=== PATIENT | male | born 1945 | race Caucasian/White ===

== ENCOUNTER 2016-10-11 17:49 | Emergency (ER) | payer OTHER, BC ==
[~2016-10-11 17:49] MED LIST: GLUCTAB PO; IBUP-1277 PO; MULTTAB58 PO; OMEGCAP2 PO
[2016-10-11 18:01] VITALS: TEMP 36.6; Ht 172.7 cm
[2016-10-11] MEDS ORDERED: HYDROCODONE/ACETAMOPHEN 5/325MG TAB PO STA (18:46)
--- NOTE | 2016-10-11 19:39 | DIAGNOSTIC IMAGING REPORT ---
LEFT KNEE 3 VIEWS HISTORY: Left knee pain s/p "knee gave out"(Mid femur to distal jeronimo) COMPARISON: None. FINDINGS: There is no fracture or dislocation. Vascular calcifications are noted. No significant knee effusion. Chondrocalcinosis. Moderate cartilage space narrowing within the medial and lateral compartment of the knee. Mild cartilage space narrowing and osteophytes at the patellofemoral joint. The bones are osteopenic. No radiopaque foreign bodies. IMPRESSION: No fractures. Mild to moderate degenerative changes within the left knee. Electronically signed by: Mariano Rodas M.D. 10/11/2016 7:38 PM Dictated Date/Time: 10/11/2016 7:36 PM
--- NOTE | 2016-10-11 20:25 | EMERGENCY ROOM VISIT NOTE ---
History First contact with patient: 18:32 Chief Complaint: KNEEPAIN Stated Complaint: KNEE PAIN- CANNOT STAND ALONE History of Present Illness The patient is a 71 year old male who presents to the Emergency Room via private vehicle accompanied by female with complaints of "knee pain, cannot stand alone". Patient states that earlier today around 4 PM he was at home, urinating and when he attempted to zipper his fly he notes that his left knee gave out on him. He states that since then his left knee has been painful, and he cannot bear weight on it. He denies any knee surgeries or previous knee injuries. He denies any numbness or tingling. He rates the knee pain as an 8/ 10 at rest, and increased with standing. Review of Systems A complete 6-point Review of Systems was discussed with the patient, with pertinent positives and negatives listed in the History of Present Illness. All remaining Review of Systems questions can be considered negative unless otherwise specified. Past Medical/Surgical History No pertinent past medical history. Family History No pertinent family history. Social History Smoking Status: Former Smoker Current/Historical Medications Scheduled Glucosamine Hcl-Methylsulfonyl (Glucosamine/Msm), 1 TABLET PO BID Multiple Vitamin (Multivitamin), 1 TABLET PO DAILY [place]-3 Fatty Acids (Fish Oil), 2 CAPSULES PO DAILY Scheduled PRN Hydrocodone/Acetaminophen 5MG/325MG ([place] 5MG/325MG), 1-2 TABLET PO Q6 PRN for Pain Ibuprofen (Advil), 400 MG PO UD PRN for Pain or Fever Allergies Coded Allergies: No Known Allergies (Unverified , 08/24/13) Physical Exam Vital Signs Date Time Temp Pulse Resp B/P Pulse Ox O2 Delivery O2 Flow Rate FiO2 10/11/16 20:50 91 18 168/85 96 Room Air 10/11/16 18:01 36.6 80 18 162/87 96 Room Air Physical Exam VITAL SIGNS - Vital signs and nursing notes were reviewed. Patient is afebrile , hypertensive at 162/87, non-tachycardic and is saturating well on room air at 96%. GENERAL -71-year-old male appearing his stated age who is in no acute distress. Communicates well with provider and answers questions appropriately. SKIN - Without rashes. No evidence of breaks in the integument. HEAD - NC/AT. LUNGS - Chest wall symmetric without accessory muscle use, intercostals retractions, or central cyanosis. Normal vesicular breath sounds CTA B/L. No wheezes, rales, or rhonchi appreciated. CARDIAC - RRR with S1/S2. No murmur, rubs, or gallops appreciated. EXTREMITIES - No clubbing or peripheral cyanosis. No pretibial edema present. There is tenderness to palpation overlying the anterior left knee. There is pain with passive extension of the left knee, no pain with flexion. No evidence of DVT. No palpable cord or calf tenderness. Patient is vascularly intact. +5/5 strength noted in UE/LE bilaterally. Patient is neurologically intact. Medical Decision & Procedures ER Provider Diagnostic Interpretation: LEFT KNEE 3 VIEWS HISTORY: Left knee pain s/p "knee gave out"(Mid femur to distal jeronimo) COMPARISON: None. FINDINGS: There is no fracture or dislocation. Vascular calcifications are noted. No significant knee effusion. Chondrocalcinosis. Moderate cartilage space narrowing within the medial and lateral compartment of the knee. Mild cartilage space narrowing and osteophytes at the patellofemoral joint. The bones are osteopenic. No radiopaque foreign bodies. IMPRESSION: No fractures. Mild to moderate degenerative changes within the left knee. Electronically signed by: Mariano Rodas M.D. 10/11/2016 7:38 PM Dictated Date/Time: 10/11/2016 7:36 PM Medications Administered Medications (Trade) Dose Ordered Sig/Marie Route Start Time Stop Time Status Last Admin Dose Admin Acetaminophen/ Hydrocodone Bitart ([place] 5/325 Tab) 1 tab NOW STAT PO 10/11/16 18:46 10/11/16 18:48 DC 10/11/16 19:07 1 TAB Acetaminophen/ Hydrocodone Bitart ([place] 5/325mg Home Pack) 1 homepack UD STAT PO 10/11/16 20:29 10/11/16 20:30 DC 10/11/16 20:45 1 HOMEPACK Medical Decision Patient was seen and evaluated as above. After obtaining a thorough history and physical examination radiographs was obtained and a left knee secondary to subjective and objective examination findings. Patient did want something for pain, noted that he did not like oxycodone. He wanted something stronger than [id number] meds. He was given [place]. He was reassessed and was not experiencing much relief. He was then reassessed again and noted that he felt like the knee pain was feeling better. He was also evaluated by my attending. Case was discussed with my attending. Patient was fitted with a knee immobilizer and with crutches. I do believe the patient is likely experiencing a ligamentous injury inside the knee. I do not suspect any tendinous or muscle rupture. Patient is a follow-up in the outpatient setting with orthopedics by calling the phone number tomorrow. He was provided with a phone number to call. He was educated upon management of today's findings. He was educated upon the findings of the left knee. He was instructed to follow-up with orthopedics. He had questions answered prior to discharge, had questions answered prior to discharge and was discharged home in good condition with a prescription for [place]. He was also given a home pack. In the evaluation and treatment of this patient, the following differential diagnoses were considered: Patellar Fracture, Tibial Plateau Fracture, Distal Femur Fracture, ACL Injury, PCL Injury, Collateral Ligament Injury, Pes Anserine Bursitis, [place] Fracture. [place] Drug Monitoring Program Search Results: patient reviewed within database, no issues identified Impression Primary Impression: Knee pain Departure Information Dispostion Home / Self-Care Condition GOOD Prescriptions Hydrocodone/Acetaminophen 5MG/325MG ([place] 5MG/325MG) Tab 1-2 TABLET PO Q6 Y for Pain, #15 TAB For Initial Treatment Prov: Misael Barrera PA-C 10/11/16 Referrals No Doctor, Assigned (PCP) Ignacio Keita M.D. Patient Instructions My [facility] Additional Instructions You have been treated in the Emergency Department for Left Knee Pain.You have received pain medicine in the emergency department which impairs your ability to operate a vehicle. It is illegal for you to drive after receiving these medicines. You have been prescribed [place] to be used for pain control. This is a narcotic medication. You cannot drive or consume alcohol while on this medicine. This medicine should only be used for pain that cannot be controlled with over-the- counter pain medicines. For pain control, you can use the following btfw-xxt-rjanbic medicines (if >12 yo): DO NOT TAKE THIS WITH TYLENOL IT ALREADY HAS TYLENOL IN IT!!! - Regular strength (200 mg/tab) Advil (ibuprofen) 1-2 tabs every 4-6 hours as needed. Do not exceed a dose of 3200 mg per day. If this is a recent injury (<24 hrs), ice can be applied to the area of pain for the first 3 days to help decrease pain and inflammation. Ice massages can be performed by freezing water in a paper cup, peeling back the cup to expose the ice and then massaging over the affected area. You have been provided the number for an Orthopaedic Surgeon. You should call this number as soon as possible to establish a follow-up visit from today's Emergency Department visit. (Dr. Keita) Keep the knee brace in place until cleared by Orthopedics. Use the crutches you have been provided to keep ALL weight off of the knee until weight bearing is tolerable. Return to the Emergency Department if your current symptoms worsen despite treatment course outlined above. Problem Qualifiers Primary Impression: Knee pain Laterality: left Chronicity: acute Qualified Codes: M25.562 - Pain in left knee
[2016-10-11] MEDS ORDERED: NORCO 5/325MG HOME PACK PO STA (20:29)
[2016-10-11] MEDS ORDERED: HYDR-5688 PO (20:32)
[2016-10-11 20:50] VITALS: BP 168/85; PULSE 91; O2SAT 96
--- NOTE | 2016-10-13 01:39 | EMERGENCY ROOM VISIT NOTE ---
ED Visit Note First contact with patient: 18:32 I have personally evaluated this patient examined her and reviewed the pertinent labs and data. I have discussed the case with Misael Barrera, the physician economic research assistant and agree with the plan. Please refer to the PA note The patient has left knee pain. He has some arthritis in this knee and it is not red or warm. He has difficult time with extension and has some mild pain that started anteriorly and is now more posteriorly. He has no calf tenderness. he is neurologically neurovascularly intact. He has nothing to suggest section and has no redness or warmth.. X-rays showed degenerative changes. the patient was given an immobilizer and pain medicine as a follow-up with orthopedist.
[2016-12-22] MEDS ORDERED: ZFR/8 PO (13:47)
[2016-12-22] MEDS ORDERED: CLB/200 PO (13:47)
[2016-12-22] MEDS ORDERED: VSC/5 PO (13:47)
== END 2016-10-11 20:51 | disposition home or self-care (01) ==
LOC: C.EDB 17:50 → C.EDD 20:51
DX: M25.562 Pain in left knee (principal)

== ENCOUNTER → 2016-12-29 | Outpatient (CLI) | payer OTHER, BC ==
[~2016-12-29] MED LIST changes: +ACET-1138 PO; +ASPEC81 PO; +CLB/200 PO; -GLUCTAB PO; -IBUP-1277 PO; +LISI-461 PO; -OMEGCAP2 PO; +OXYSR10 PO; +RXC5 PO; +VSC/5 PO; +ZFR/8 PO
[2016-12-29 13:18] LABS: CHOLESTEROL/HDL RATIO 4.4; PROSTATE SPECIFIC ANTIGEN 4.38 ng/ml (0.000-4.000)
--- NOTE | 2017-01-03 11:23 | CODING QUERY MEDICAL NECESSITY ---
CQSUPPORTING DIAGNOSIS NEEDED A supporting diagnosis is required for the test/procedure performed on this patient in order for us to be reimbursed by the patient's insurance. Please provide a supporting diagnosis for the following test/procedure listed below next to the test name along with your signature. *If there is no additional diagnosis for this patient that would support the following test/procedure please document that below next to the test/procedure. Test(s)/Procedure(s) that require a supporting diagnosis: DOS 12/29/16 PROSTATE SPECIFIC (PSA) Provider Signature: Date: Thank you Naina Aranda Health Information Management Once completed, please kindly fax back to [phone] For questions please call [phone]
== END | disposition home or self-care (01) ==
LOC: C.LABPBG 10:59
PROVIDERS: ATTEND Neuromusculoskeletal Medicine & OMM
DX: Z00.00 Encounter for general adult medical examination without abnormal findings (principal); I10 Essential (primary) hypertension; Z12.5 Encounter for screening for malignant neoplasm of prostate

== ENCOUNTER 2017-01-13 05:14 | Inpatient (IN) | payer OTHER, BC ==
[2016-12-22 13:48] VITALS: BMI 25.0
--- NOTE | 2016-12-22 14:25 | PAT Medication Instructions ---
Service Date December 22, 2016. Current Home Medication List Celecoxib (CeleBREX), 200 MG PO BID PRN for Pain Multiple Vitamin (Multivitamin), 1 TABLET PO DAILY Ondansetron (Ondansetron HCl), 1 TAB PO Q6H PRN for Nausea Solifenacin (Vesicare), 5 MG PO QAM Medication Instructions For Your Scheduled Surgery - Check with surgeon for instructions: Celecoxib (CeleBREX), 200 MG PO BID PRN for Pain - Hold the following medications the morning of surgery: Solifenacin (Vesicare), 5 MG PO QAM Multiple Vitamin (Multivitamin), 1 TABLET PO DAILY - Take the following medications the morning of surgery with a sip of water: Ondansetron (Ondansetron HCl), 1 TAB PO Q6H PRN for Nausea - Take the following medications as scheduled the night before surgery: Ondansetron (Ondansetron HCl), 1 TAB PO Q6H PRN for Nausea If you have any questions please call us at [phone] (Caryn Tate PA-C) or [phone] or [phone]
[2016-12-22 15:01] LABS: BASO % 0.3 %; BASO ABS # 0.02 K/uL (0-0.2); COMPLETE YES; EOS % 2.2 %; HEMATOCRIT 47.6 % (42-52); IG% 0.3 %; LYMPH % 24.6 %; LYMPH ABS # 1.69 K/uL (1.2-3.4); MEAN CELL VOLUME 92.8 fL (80-100); MEAN CORPUSCULAR HGB CONC 34.5 g/dl (32-36); NEUT % 63.6 %; PLATELET COUNT 207 K/uL (130-400); RED BLOOD COUNT 5.13 M/uL (4.7-6.1); WHITE BLOOD COUNT 6.86 K/uL (4.8-10.8)
--- NOTE | 2016-12-22 15:01 | DIAGNOSTIC IMAGING REPORT ---
CHEST PREADMISSION(PA/LAT) CLINICAL HISTORY: Preoperative evaluation. COMPARISON STUDY: No previous studies for comparison. FINDINGS: Lung volumes are normal. Lungs are clear. There is no pneumothorax or pleural effusion. Cardiac size is normal. Mediastinal contours are normal. There is no evidence of pulmonary edema. IMPRESSION: No acute cardiopulmonary findings. Electronically signed by: Kevan Church M.D. 12/22/2016 3:00 PM Dictated Date/Time: 12/22/2016 2:59 PM
[2016-12-22 15:11] LABS: CREATININE 0.88 mg/dl (0.60-1.40); POTASSIUM 4.2 mmol/L (3.5-5.1)
[2016-12-22 15:24] LABS: URINE APPEARANCE CLEAR (CLEAR); URINE BILIRUBIN NEG (NEG); URINE COLOR YELLOW; URINE EPITHELIAL CELL AUTO 0-5 /lpf (0-5); URINE NITRITE NEG (NEG); URINE PH 5.5 (4.5-7.5); URINE SPECIFIC GRAVITY 1.019 (1.000-1.030); UROBILINOGEN NEG (NEG)
[2016-12-22 15:25] LABS: PARTIAL THROMBOPLASTIN RATIO 1.1; PROTHROMBIN TIME (PATIENT) 10.3 SECONDS (9.0-12.0)
[2016-12-22 15:29] LABS: MANUAL MICROSCOPIC REQUIRED? NO; REVIEW REQ? NO
[2016-12-23 07:50] LABS: ESTIMATED AVERAGE GLUCOSE 105 mg/dl; HA1C FLAG Normal (Normal)
--- NOTE | 2017-01-09 15:19 | HISTORY & PHYSICAL EXAMINATION ---
DATE OF ADMISSION: 01/13/2017 CHIEF COMPLAINT: Right knee pain. HISTORY OF PRESENT ILLNESS: The patient is a 71-year-old male that is here for followup for right knee pain. He states that the symptoms have been chronic and nontraumatic. He describes the pain as aching, sharp and throbbing at times. He has tried cortisone injections with no relief. He has also tried physical therapy and anti-inflammatories with no relief. He would like to proceed with a right total knee arthroplasty. PAST MEDICAL HISTORY: Significant for arthritis, hearing impairment. PAST SURGICAL HISTORY: Hernia repair. SOCIAL HISTORY: Drinks 1 alcoholic beverage a week. He denies smoking or tobacco use. Denies IV drug use. Lives in a 1-story house. He is currently retired. FAMILY HISTORY: Sister had leukemia and . ALLERGIES: He has no known drug allergies. MEDICATIONS: He is on VESIcare 5 mg 1 tablet daily, [place] 5/325 as needed for pain, finasteride 1 mg 1 tablet daily, Centrum Silver, Osteo Bi-Flex. REVIEW OF SYSTEMS: He denies headaches, fevers, chills, double vision, blurry vision, sore throat, cough, chest pain, nausea, vomiting, diarrhea, numbness, tingling, tired, urinary difficulties, thoughts to harm himself or harm others, depression. He is positive for joint pain and joint stiffness of the right knee. OBJECTIVE: GENERAL APPEARANCE: The patient is a 71-year-old male sitting in no acute distress. He is well dressed, well nourished. He is awake, alert and oriented x3. VITAL SIGNS: He is 5 feet 8 inches tall, weighs 160 pounds, blood pressure is 142/88. HEENT: Extraocular movements are intact. PERRLA. Mucosa was moist. No septal deviation. NECK: Supple, no lymphadenopathy, no JVD, no thyromegaly. HEART: Regular rate and rhythm. No murmurs or gallops. LUNGS: Clear to auscultation. No wheezes or rhonchi. ABDOMEN: Soft, nontender, nondistended. Normal bowel sounds, no hepatosplenomegaly. EXTREMITIES: Paying particular attention to the right lower extremity, he is able to actively extend to 2 degrees of extension, 90 degrees of flexion. He has diffuse tenderness, particularly more over the medial joint line. His ligaments are intact. He has a negative valgus, negative varus stress test, negative anterior and negative posterior, negative Lisa's test, negative Suzie's test. NEUROLOGIC: Cranial nerves II through XII are intact. Pulses were compared bilaterally and were equal. IMAGING: X-rays demonstrate [id number] arthritis with significant varus deformity, subchondral sclerosis, cystic change bilaterally with osteophyte formation off the medial femoral condyle and medial tibial plateau. IMPRESSION: Degenerative joint disease of the right knee. PLAN: The patient is scheduled for a right total knee arthroplasty. The patient has tried cortisone injections, physical therapy, and nonsteroidal anti-inflammatories with no relief. He would like to proceed with a right total knee arthroplasty. Risks and benefits were discussed with the patient and included but not limited to infection, DVT, pain, stiffness, need for revision surgeries, damage to blood vessels, damage to nerves, PE, and anesthesia risks. He understands these risks and wishes to proceed. All questions were answered to his satisfaction. DVT prophylaxis will be aspirin 81 mg twice a day. He would like to go home with home health. DANIEL
[~2017-01-13] VITALS: Ht 172.7 cm; Wt 74.5 kg
[2017-01-13] VITALS (8 sets, daily range): BP systolic 120–162; BP diastolic 66–84; PULSE 83–101; TEMP 36.3–36.7; O2SAT 96–100; Ht 172.7 cm; Wt 74.5 kg
[~2017-01-13 05:14] MED LIST changes: -ACET-1138 PO; -ASPEC81 PO; +AcetaZOLAMIDE 250 MG TAB PO SCH; +BETAXOLOL HCL 0.25% OP SUSP PER DROP CHARGE OPR SCH; +CYCLOPENTOLATE HCL 1% OP SOLN PER DROP CHARGE OPR SCH; +LACTATED RINGER'S 1000ML 500 ML IV SCH; +LIDOCAINE 4% OP SOLN DROP CHARGE OPR SCH; -LISI-461 PO; +MOXIFLOXACIN OPH SOLN PER DROP CHARGE OPR SCH; -OXYSR10 PO; +PHENYLEPHRINE HCL 2.5% OP SOLN PER DROP CHARGE OPR SCH; +PROPARACAINE 0.5% OP SOLN PER DROP CHARGE OPR SCH; -RXC5 PO; +TROPICAMIDE 1% OP SOLN PER DROP CHARGE OPR SCH
[2017-01-13] MEDS ORDERED: LACTATED RINGER'S 1000ML 1,000 ML IV SCH (06:00)
[2017-01-13] MEDS ORDERED: CeleBREX 200 MG CAP PO SCH ×2 (06:00→21:00)
[2017-01-13] MEDS ORDERED: GABAPENTIN 300 MG CAP PO SCH (06:00)
[2017-01-13] MEDS ORDERED: LACTATED RINGER'S 1000ML IV SCH (06:00)
[2017-01-13] MEDS ORDERED: CEFAZOLIN 2000 MG/60 ML D5W 60 ML IV SCH (06:00)
[2017-01-13] MEDS ORDERED: DEXAMETHASONE 4 MG TAB PO SCH (06:00)
[2017-01-13] MEDS ORDERED: ACETAMINOPHEN 500 MG TAB PO SCH (06:00)
[2017-01-13] MEDS ORDERED: LACTATED RINGER'S 1000ML 500 ML IV ONE (06:00)
[2017-01-13] MEDS ORDERED: ROPIVACAINE 5MG/ML 30 ML 150 MG, BUPIVACAINE/EPINEPHR 0.5% MPF 30 ML, KETOROLAC TROMETH... INFIL SCH ×7 (06:00)
[2017-01-13] MEDS ORDERED: METOCLOPRAMIDE HCL 10 MG TAB PO SCH (06:00)
[2017-01-13] MEDS ORDERED: LISI-461 PO (06:16)
[2017-01-13] MEDS ORDERED: BUPIVACAINE 0.25% 30 ML VIAL ONE (06:40)
[2017-01-13] MEDS ORDERED: BUPIVACAINE 0.5 % 5 MG/1 ML PF 10ML VIAL ONE (06:40)
[2017-01-13] MEDS ORDERED: PROPOFOL IV EMULSION 10 MG/ML 20 ML VIAL IV ONE ×3 (06:44→09:34)
[2017-01-13] MEDS ORDERED: MIDAZOLAM HCL 1 MG/ML 2ML VIAL ONE (06:46)
[2017-01-13] MEDS ORDERED: FENTANYL CITRATE INJ 50 MCG/1 ML 2 ML VIAL ONE (06:46)
--- NOTE | 2017-01-13 06:46 | History & Physical Bridge Note ---
H&P Re-Evaluation Bridge Note: I have examined the patient, reviewed the History & Physical and in the interval since the performance of the History & Physical I have noted the following changes of clinical significance: No changes noted
[2017-01-13] MEDS: TRANEXAMIC ACID INJ 1,000 MG in SODIUM CHLORIDE 0.9% 100ML 100 ML IV SCH ×2 (06:48→11:24)
[2017-01-13] MEDS ORDERED: BACITRACIN 50000 UNIT VIAL ONE (06:52)
[2017-01-13] MEDS ORDERED: POVIDONE-IODINE OP SOLN 30 ML BTL ONE (06:52)
[2017-01-13] MEDS ORDERED: ORTHO JOINT ANESTHETIC ONE (06:52)
[2017-01-13] MEDS ORDERED: PHENYLEPHRINE 100MCG/ML 5ML SYR ONE (08:05)
[2017-01-13] MEDS ORDERED: PHENYLEPHRINE HCL INJ 10 MG/ML VIAL ONE (08:05)
--- NOTE | 2017-01-13 09:27 | [facility] Post Operative Brief Note ---
Immediate Operative Summary Operative Date January 13, 2017. Pre-Operative Diagnosis Right knee degenerative joint disease Post-Operative Diagnosis Same Procedure(s) Performed Right Total Knee Arthroplasty; Cemented Surgeon Dr. Keita Pipe Chipper Surgeon(s) Haroldo Howell PA-C Estimated Blood Loss 50 Specimens A. Right knee bone and tissue Drains 2 hemovac Anesthesia spinal, adductor block Complication(s) None Disposition Recovery Room / PACU
[2017-01-13] MEDS ORDERED: ONDANSETRON 8 MG TAB PO PRN (09:30)
[2017-01-13] MEDS ORDERED: METOCLOPRAMIDE HCL INJ 5 MG/ML 2 ML VIAL IV PRN (09:30)
[2017-01-13] MEDS ORDERED: ONDANSETRON INJ 2 MG/ML 2 ML VIAL IV PRN (09:30)
[2017-01-13] MEDS ORDERED: KETOROLAC TROMETHAMINE 15 MG/ML VIAL IV. PRN (09:30)
[2017-01-13] MEDS ORDERED: MAGNESIUM HYDROXIDE SUSP 30 ML UDC PO PRN (09:30)
[2017-01-13] MEDS ORDERED: OXYCODONE HCL IR 5 MG TAB (IMMEDIATE RELEASE) PO PRN (09:30)
[2017-01-13] MEDS ORDERED: ZOLPIDEM TARTRATE 5 MG TAB PO PRN (09:30)
[2017-01-13] MEDS ORDERED: MoRPHine SULFATE 2 MG/ML CARP IV PRN (09:30)
[2017-01-13] MEDS ORDERED: ALUMINUM/MAGNESIUM/SIMETH (MAALOX MAX) 30 ML UDC PO PRN (09:30)
[2017-01-13] MEDS ORDERED: ATROPINE SULFATE 0.1 MG/ML 5ML SYR IV PRN (10:00)
[2017-01-13] MEDS ORDERED: EpHEDrine SULFATE INJ 50 MG/ML AMP IV PRN (10:00)
--- NOTE | 2017-01-13 10:54 | DIAGNOSTIC IMAGING REPORT ---
RIGHT KNEE 2 VIEWS History: Right total knee arthroplasty. Degenerative arthritis. Postop. FINDINGS: The patient is status post a right total knee arthroplasty. The hardware is intact. No fracture or dislocation. Skin greg and surgical drains are in place. IMPRESSION: Right total knee arthroplasty. No evidence for hardware complication. Electronically signed by: Mariano Rodas M.D. 01/13/2017 10:53 AM Dictated Date/Time: 01/13/2017 10:52 AM
--- NOTE | 2017-01-13 11:08 | OPERATIVE REPORT ---
DATE OF OPERATION: 01/13/2017 PREOPERATIVE DIAGNOSIS: Right knee degenerative joint disease. POSTOPERATIVE DIAGNOSIS: Same. PROCEDURE: Right total knee arthroplasty. SURGEON: Dr. Ignacio Keita. SENIOR INFRASTRUCTURE ENGINEER: Haroldo Howell PA-C, who was necessary for assistance of procedure with positioning, prepping, draping, retraction and closure. ANESTHESIA: Spinal with adductor canal block. SPECIMEN: Bone and tissue. IMPLANTS: Brower \T\ Nephew Journey version 2 femur 6, tibia 4, poly 10 constrained, and patella 32 oval. COMPLICATIONS: None. ESTIMATED BLOOD LOSS: 50 mL. INDICATIONS: The patient is a 71-year-old male with a longstanding pain in the right knee. He has bone on bone in the right knee with varus deformity of 17 degrees. He has failed conservative measures including injection, anti-inflammatories and rehab. Failing conservative measures, he wished to proceed with right total knee arthroplasty. Risks, benefits, and alternatives of surgery including, but not limited to infection, DVT, pain, stiffness, need for urgent surgery, failure to relieve all symptoms, damage to blood vessels, damage to nerves, and risks of anesthesia were discussed with the patient and he wished to proceed. DESCRIPTION OF PROCEDURE: The patient was identified, laterality was confirmed and marked. He received a preoperative antibiotic as well as an adductor canal block and a spinal anesthetic. A well-padded tourniquet was placed on the thigh and limb was prepped and draped in usual sterile manner with ChloraPrep. The limb was exsanguinated and tourniquet was inflated. I made a longitudinal incision in the anterior aspect of the knee, sharply incising through the skin utilizing Bovie electrocautery to achieve hemostasis. I made a medial parapatellar arthrotomy and mobilized the patella laterally. He had a preoperative flexion contracture of about 10 degrees. So, we elected to take an additional 2 mm initially. The patient matched femoral cutting guide was placed into position. We put our pins into place and then switched to the +2 distal femoral resection cutting guide and made my distal femoral resection. I then placed a size 6, 5-in-1 cutting guide and made my anterior, posterior and chamfer cuts. I removed the remaining portions of the menisci and the cruciates, elevated the deep MCL. I then pinned in place a patient matched tibial cutting guide and made my tibial resection. We had a fair amount mismatch between the size of the medial tibial plateau and lateral tibial plateau. To establish appropriate rotation, we would have too much overhang posteriorly off lateral tibial plateau, but with the size 4 tibia, we still had a fair amount of medial bone uncovered, but this was the appropriate size to get no posterior overhang and to be able to have appropriate tibial rotation. This was pinned into place and then cut for the post. The lamina librarian assistant was placed. I then used a curved osteotome and removed posterior osteophytes off of the femur. I removed the remaining portion of the meniscus. I then placed the trial femur into position, reamed the trochlear component, and placed the trochlear component into position and then began trialing with the poly. He had still significant tightness on the medial side. I released the portion of the deep MCL off of the tibia. He still had soft tissue imbalance. I then released with a 10 blade bit more of the medial side. I then trialed up to a size 11 poly. He still had some residual laxity on the lateral side and so, we were no longer able to get into full extension, so we dropped down to a size 10 poly with a constrained polyethylene post. This gave us good stability medially and laterally and we were able to get the knee into full extension. The patella was then prepared with a freehand cut and then sized and drilled for a 32 oval patella. The trial components were removed. Wound was thoroughly irrigated. As we were preparing to implant our definitive implants, the ambulatory service representative report me that we did not have a size 4 tibia. There was a size 4 on a shelf, but that was for different system. There was another 4 tibia that had [place] the airport[place] So, we elected to wait for the proper size component to be delivered. We drop the tourniquet, thoroughly irrigated the wound, anesthetized the deep tissues with an Orthomix solution and performed a Betadine soak. The rep was able to deliver the appropriate size component within about 20 minutes. We then reinflated the tourniquet, dried the wound and then with Simplex HV with gent cement, cemented my definitive components. This was Brower \T\ Nephew Journey version II, femur 6, tibia 4, poly 10 constrained, and patella 32 oval. Deep drain was placed. Arthrotomy was closed with interrupted #1 Vicryl sutures, subcutaneous tissues with interrupted 2-0 Vicryl suture and skin with greg. A Silverlon dressing was placed. All needle and sponge counts were correct at the end of the procedure. The patient was transferred to the PACU in stable condition without apparent complication. I attest to the content of the Intraoperative Record and any orders documented therein. Any exceptions are noted below. ANNAD
--- NOTE | 2017-01-13 11:25 | Anesthesiology Progress Note ---
Anesthesia Post Op Note Date & Time January 13, 2017 at 11:25 Vital Signs Pain Intensity: 0 Vital Signs Past 12 Hours Date Time Temp Pulse Resp B/P Pulse Ox O2 Delivery O2 Flow Rate FiO2 01/13/17 11:16 125/85 01/13/17 11:14 84 15 01/13/17 11:14 83 15 98 01/13/17 11:09 87 20 99 01/13/17 11:09 86 20 01/13/17 11:04 85 16 01/13/17 11:04 85 16 98 01/13/17 11:03 80 17 98 01/13/17 11:03 80 17 01/13/17 11:01 124/80 01/13/17 10:58 86 16 99 01/13/17 10:58 85 16 01/13/17 10:56 36.4 01/13/17 10:53 85 15 01/13/17 10:53 86 15 98 01/13/17 10:48 85 17 99 01/13/17 10:48 85 17 01/13/17 10:46 123/70 01/13/17 10:43 86 14 01/13/17 10:43 87 14 98 01/13/17 10:41 99/60 01/13/17 10:38 85 15 01/13/17 10:38 86 15 97 01/13/17 10:36 104/56 01/13/17 10:33 84 17 01/13/17 10:33 36.4 01/13/17 10:33 84 17 98 01/13/17 10:32 83 16 97 01/13/17 10:32 83 16 01/13/17 10:31 121/70 01/13/17 10:27 85 18 97 01/13/17 10:27 84 18 01/13/17 10:26 120/68 01/13/17 10:24 87 18 97 01/13/17 10:24 87 18 01/13/17 10:21 117/72 01/13/17 10:19 89 16 97 01/13/17 10:19 89 16 01/13/17 10:16 117/69 01/13/17 10:14 85 13 01/13/17 10:14 85 13 97 01/13/17 10:13 85 21 01/13/17 10:13 84 21 98 01/13/17 10:11 125/71 01/13/17 10:08 85 16 01/13/17 10:08 84 16 97 01/13/17 10:06 112/72 01/13/17 10:04 112/63 01/13/17 10:03 36.4 90 20 112/63 96 Nasal Cannula 2 01/13/17 10:03 87 14 01/13/17 10:03 86 14 96 01/13/17 05:39 36.7 93 18 162/84 97 Room Air Notes Mental Status: alert / awake / arousable, participated in evaluation Pt Amnestic to Procedure: Yes Nausea / Vomiting: adequately controlled Pain: adequately controlled Airway Patency, RR, SpO2: stable & adequate BP & HR: stable & adequate Hydration State: stable & adequate Neuraxial Anesthesia: was administered, sensory block is resolving Anesthetic Complications: no major complications apparent
[2017-01-13] MEDS ORDERED: D5W AND 1/2NSS + 20MEQ KCL 1,000 ML IV SCH (12:00)
[2017-01-13] MEDS: CEFAZOLIN IV 2,000 MG in DEXTROSE 5% 50ML 50 ML IV SCH (15:42)
[2017-01-13] MEDS: ACETAMINOPHEN 500 MG TAB PO SCH (15:45)
[2017-01-13] MEDS: FERROUS GLUCONATE 324 MG TAB PO SCH (17:44)
[2017-01-13] MEDS: OXYCODONE HCL 10 MG TABCR (OXYCONTIN) PO SCH (21:06)
[2017-01-13] MEDS: ASPIRIN 81 MG ECTAB PO SCH (21:06)
[2017-01-13] MEDS ORDERED: NURSING VERBAL MED ORDER ONE (21:15)
[2017-01-14] MEDS: CEFAZOLIN IV 2,000 MG in DEXTROSE 5% 50ML 50 ML IV SCH (00:15)
[2017-01-14] MEDS: ACETAMINOPHEN 500 MG TAB PO SCH ×2 (00:16→07:44)
[2017-01-14 04:05] VITALS: BP 142/71; PULSE 97; TEMP 36.4; O2SAT 95
[2017-01-14 06:28] LABS: HEMATOCRIT 36.7 % (42-52); MEAN CORPUSCULAR HEMOGLOBIN 32.3 pg (25-34); MEAN CORPUSCULAR HGB CONC 35.1 g/dl (32-36); MEAN PLATELET VOLUME 10.1 fL (7.4-10.4); PLATELET COUNT 195 K/uL (130-400); RED BLOOD COUNT 3.99 M/uL (4.7-6.1); WHITE BLOOD COUNT 12.39 K/uL (4.8-10.8)
[2017-01-14 06:49] VITALS: BP 150/85; PULSE 95; TEMP 36.4; O2SAT 97
[2017-01-14 07:06] LABS: BUN/CREATININE RATIO 22.5 (10-20); CALCIUM 7.9 mg/dl (8.5-10.1); CREATININE 0.71 mg/dl (0.60-1.40); POTASSIUM 3.8 mmol/L (3.5-5.1)
[2017-01-14] MEDS ORDERED: DEXAMETHASONE 4 MG TAB PO SCH (07:30)
[2017-01-14] MEDS: FERROUS GLUCONATE 324 MG TAB PO SCH (08:31)
[2017-01-14] MEDS: ASPIRIN 81 MG ECTAB PO SCH (08:31)
[2017-01-14] MEDS: OXYCODONE HCL 10 MG TABCR (OXYCONTIN) PO SCH (08:33)
--- NOTE | 2017-01-14 08:40 | Orthopedic Progress Note ---
Orthopedic Progress Note Date of Service January 14, 2017. Subjective Post OP Day: 1 (R TKA ) Reports: feeling well, pain controlled w PO medications, Denies: SOB, chest pain , complaints, light headedness, nausea / vomiting Objective calves soft nontender, N/V intact, dressing C/D/I (MOD BLOODY DRAIANGE ON DRESSING ), toes mobile Date Time Temp Pulse Resp B/P Pulse Ox O2 Delivery O2 Flow Rate FiO2 01/14/17 07:20 Room Air 01/14/17 06:49 36.4 95 17 150/85 97 Room Air 01/14/17 04:05 36.4 97 16 142/71 95 Room Air 01/13/17 23:35 Room Air 01/13/17 23:00 36.7 101 16 143/66 96 Room Air 01/13/17 19:23 36.4 89 18 142/75 97 Nasal Cannula 3.0 01/13/17 15:45 Nasal Cannula 2.0 01/13/17 14:52 36.4 93 17 122/73 100 Nasal Cannula 3.0 01/13/17 13:50 36.5 83 19 124/75 99 Nasal Cannula 3.0 01/13/17 12:40 36.5 90 17 120/73 99 Nasal Cannula 2.0 01/13/17 12:06 36.3 83 17 125/74 99 Nasal Cannula 2.0 01/13/17 11:35 36.4 87 16 122/72 99 Nasal Cannula 2.0 01/13/17 11:35 99 Nasal Cannula 2.0 01/13/17 11:35 99 Nasal Cannula 2.0 01/13/17 11:16 125/85 01/13/17 11:14 84 15 01/13/17 11:14 83 15 98 01/13/17 11:09 87 20 99 01/13/17 11:09 86 20 01/13/17 11:04 85 16 01/13/17 11:04 85 16 98 01/13/17 11:03 80 17 98 01/13/17 11:03 80 17 01/13/17 11:01 124/80 01/13/17 10:58 86 16 99 01/13/17 10:58 85 16 01/13/17 10:56 36.4 01/13/17 10:53 85 15 01/13/17 10:53 86 15 98 01/13/17 10:48 85 17 99 01/13/17 10:48 85 17 01/13/17 10:46 123/70 01/13/17 10:43 86 14 01/13/17 10:43 87 14 98 01/13/17 10:41 99/60 01/13/17 10:38 85 15 01/13/17 10:38 86 15 97 01/13/17 10:36 104/56 01/13/17 10:33 84 17 01/13/17 10:33 36.4 01/13/17 10:33 84 17 98 01/13/17 10:32 83 16 97 01/13/17 10:32 83 16 01/13/17 10:31 121/70 01/13/17 10:27 85 18 97 01/13/17 10:27 84 18 01/13/17 10:26 120/68 01/13/17 10:24 87 18 97 01/13/17 10:24 87 18 01/13/17 10:21 117/72 01/13/17 10:19 89 16 97 01/13/17 10:19 89 16 01/13/17 10:16 117/69 01/13/17 10:14 85 13 01/13/17 10:14 85 13 97 01/13/17 10:13 85 21 01/13/17 10:13 84 21 98 01/13/17 10:11 125/71 01/13/17 10:08 85 16 01/13/17 10:08 84 16 97 01/13/17 10:06 112/72 01/13/17 10:04 112/63 01/13/17 10:03 36.4 90 20 112/63 96 Nasal Cannula 2 01/13/17 10:03 87 14 01/13/17 10:03 86 14 96 Laboratory Results 24 Hours: Test 01/14/17 05:41 Hematocrit 36.7 % Hemoglobin 12.9 g/dL Assessment & Plan Assessment: POD 1 TKA Inhouse Planning Pain Management: Celebrex, Oxycontin, PO Tylenol, Oxy IR DVT Prophylaxis: TEDs, SCDs, ASA Discharge Planning Discharge Planning: home with home health Pain Management: Celebrex, Oxycontin, PO Tylenol, Oxy IR DVT Prophylaxis: TEDs, ASA
[2017-01-14] MEDS ORDERED: LISINOPRIL 10 MG TAB PO SCH (09:00)
[2017-01-14] MEDS ORDERED: MULTIVITAMIN TAB PO SCH (09:00)
[2017-01-14] MEDS ORDERED: PANTOprazole SOD 40 MG TAB PO SCH (09:00)
[2017-01-14] MEDS ORDERED: OXYSR10 PO (09:02)
[2017-01-14] MEDS ORDERED: ASPEC81 PO (09:02)
[2017-01-14] MEDS ORDERED: RXC5 PO (09:02)
[2017-01-14] MEDS ORDERED: ACET-1138 PO (09:02)
[2017-01-14] MEDS ORDERED: CLB/200 PO (09:02)
[2017-01-14] MEDS ORDERED: ZFR/8 PO (09:02)
--- NOTE | 2017-01-14 09:03 | Discharge Instructions ---
Discharge Instructions Date of Service January 14, 2017. Admission Reason for Admission: Right Knee Degenerative Joint Disease Discharge Discharge Diagnosis / Problem: right knee osteoarthritis Discharge Goals Goal(s): Decrease discomfort, Improve function Activity Recommendations Activity Limitations: per Instructions/Follow-up section Weightbearing Status: Right weightbearing (as tolerated) . Instructions / Follow-Up Instructions / Follow-Up ACTIVITY RECOMMENDATIONS: SELF CARE INSTRUCTIONS AFTER TOTAL KNEE REPLACEMENT A. You may need to continue a physical therapy program after discharge from the hospital. There are several options available to you. Your doctor will assist you in selecting the best one for you. 1. An out-patient facility 3 times a week for therapy. 2. Home therapy for 1 to 2 weeks with outpatient therapy to follow. 3. Continue working on all exercises taught by physical therapy three times a day for 20 minutes on non-therapy days. Your goals should be to increase the bending of your knee to 90 degrees and beyond and to fully straighten your knee. Ice and elevate knee after exercise. B. Weight as tolerated with a walker or as instructed by your physician. C. It is okay to shower if minimal to no drainage from incision. No Baths. Do not soak wound. D. Make walking a part of your daily routine. Be up as much as comfortable with rest periods throughout the day. Rest with leg elevation is very important. Use the ice wrap frequently for the first 3-4 weeks. E. There are no restrictions on activities. You may ride in a car, shop, participate in concrete polisher and all social activities. F. Wear the long elastic stockings (JEANNINE hose) 20 hours a day for one month after surgery. They can be removed several times a day for laundering and when showering. G. Silverlon- This is a large adhesive bandage that contains silver ions. This helps your incision heal by fighting off bacteria and protecting it from the outside environment. You are permitted to shower with this dressing. This will remain on your incision for 7 days and then should be removed. Some visible blood or drainage through the dressing window is normal. If there is significant drainage or leaking noted before the 7 days notify your doctor's office immediately. Once removed, keep incision clean and dry. If there is any drainage or redness noted, please call your surgeon. SPECIAL CARE INSTRUCTIONS: VERY IMPORTANT TO READ AND REVIEW A. Take Aspirin (blood thinning medications) as directed by your doctor. If on Coumadin, have a pro-time (blood test) drawn according to your doctor's instructions. This will tell the doctor how well the Coumadin is thinning your blood. B. There are a few signs you need to watch for after you are home. Call [facility] if you notice any of the followin. Increased severe knee pain. Some pain is expected especially when you exercise. 2. Increased swelling in your leg or knee; pain or swelling of the calf muscle in either lower leg. 3. Any redness or fluid drainage from the incision. 4. Shortness of breath or chest pain. 5. A Temperature of 101 degrees F or greater. C. Please call [facility] at if you have any concerns or questions about your operation or recovery. The doctor or his nurse will return your call promptly. D. You must take antibiotics before dental work, bladder, bowel or other surgery. Your doctor will provide you with a permanent care to carry describing this precaution. FOLLOW UP VISIT: If appointment is not already scheduled: Please call [facility] to make a follow-up appointment for one month after your surgery at . Current Hospital Diet Patient's current hospital diet: Regular Diet Discharge Diet Recommended Diet: Regular Diet Procedures Procedures Performed: Right Total Knee Arthroplasty; Cemented Pending Studies Studies pending at discharge: no Laboratory Results Hemoglobin A1c Test 12/22/16 14:35 Range/Units Estimated Average Glucose 105 mg/dl Hemoglobin A1c 5.3 4.5-5.6 % Lipid Panel Test 12/29/16 11:03 Range/Units Triglycerides Level 78 0-150 mg/dl Cholesterol Level 238 H 0-200 mg/dl HDL Cholesterol 54 mg/dl Cholesterol/HDL Ratio 4.4 LDL Cholesterol, Calculated 168 mg/dl Medical Emergencies . Who to Call and When: Medical Emergencies: If at any time you feel your situation is an emergency, please call 911 immediately. . Non-Emergent Contact Non-Emergency issues call your: Surgeon Call Non-Emergent contact if: temperature is above 101, your pain is not controlled, your pain is worsening, wound has increased drainage, wound has increased redness . "Provider Documentation" section prepared by Craig Brand. . VTE Core Measure Inpt VTE Proph given/why not?: Other Anticoagulation, T.E.D. Stockings
[2017-01-14 10:55] VITALS: BP 150/85; PULSE 95; TEMP 36.4; O2SAT 97
[2017-01-15] MEDS ORDERED: CeleBREX 200 MG CAP PO SCH (09:30)
--- NOTE | 2017-01-19 12:22 | DISCHARGE SUMMARY ---
ADMISSION DIAGNOSIS: Right knee degenerative joint disease. DISCHARGE DIAGNOSIS: Status post right total knee arthroplasty. CONSULTS: None. PROCEDURES: On 01/13/2017, the patient underwent a right total knee arthroplasty. HISTORY OF PRESENT ILLNESS: The patient is a 71-year-old male who is here for right knee pain in the office. He states that the symptoms are chronic and nontraumatic. He describes the pain as aching, sharp and throbbing at times. He has tried cortisone injections, physical therapy and anti-inflammatories without any relief. He would like to proceed with a right total knee arthroplasty. HOSPITAL COURSE: Postop day #1, the patient was feeling well, pain was well controlled with p.o. medications. He denied chest pain, shortness of breath, nausea, vomiting, or lightheadedness. His dressing was clean, dry and intact. There was moderate bloody drainage from the dressing, which is mobile. His plan was to be discharged home with home health. DISCHARGE CONDITION: Stable. DISPOSITION: Home with home health. MEDICATIONS: Acetaminophen 1000 mg p.o. every 8 hours, aspirin 81 mg p.o. b.i.d. for 30 days, OxyContin 10 mg p.o. every 12 hours, oxycodone 5-10 mg q. 4 hours as needed for pain, Celebrex 200 mg by mouth twice daily, lisinopril 10 mg by mouth daily, multivitamin 1 tab daily, Zofran 8 mg 1 tablet by mouth as needed for nausea, and VESIcare 5 mg by mouth daily in the morning. DISCHARGE INSTRUCTIONS: The patient is allowed to weightbear as tolerated with the right lower extremity. He is on a regular diet. He is to continue physical therapy after discharge from the hospital; it should be performed 3 times a week. His goal is to be able to bend his knee to 90 degrees and to fully straighten his knee. He is to weightbear as tolerated. No bathing or soaking of the knee. He is to wear elastic stockings for 20 hours a day for 1 month after the surgery. Silverlon dressing remain intact. For 7 days after the surgery, he is to call [facility] if he is experiencing any increase knee pain, swelling or drainage from the incision site as well as a fever greater than 101 degrees Fahrenheit. He is to follow up in 10-[address] Keita or his physician evaluation assistant. DANIEL
== END 2017-01-14 11:42 | disposition home health service (06) | DRG 470 ==
LOC: ENRESERVDT → ENRESERVTM → C.ACU 05:14 → C.3E 08:40
PROVIDERS: ADMIT Orthopaedic Surgery; ATTEND Orthopaedic Surgery
PROC: 0SRC0J9 Replacement of Right Knee Joint with Synthetic Substitute, Cemented, Open Approach (ICD-10-PCS; principal; 2017-01-13 07:00)
DX: M17.11 Unilateral primary osteoarthritis, right knee (principal); H91.90 Unspecified hearing loss, unspecified ear; Z79.899 Other long term (current) drug therapy; Z80.6 Family history of leukemia

== ENCOUNTER 2017-02-02 13:03 | Inpatient (IN) | payer OTHER, BC ==
[~2017-02-02] VITALS: Ht 172.7 cm; Wt 75.0 kg
[2017-02-02 13:50] VITALS: BP 149/74; PULSE 99; TEMP 36.7; Ht 172.7 cm; Wt 75.0 kg
[2017-02-02] MEDS ORDERED: OXYCODONE HCL IR 5 MG TAB (IMMEDIATE RELEASE) PO PRN (14:00)
[2017-02-02] MEDS ORDERED: VANCOMYCIN CONSULT ACTIVE PRN (14:15)
[2017-02-02] MEDS ORDERED: PATIENT'S HEIGHT AND/OR WEIGHT NEEDED SCH (14:15)
[2017-02-02] MEDS: DEXTROSE 5% 1000ML 1,000 ML IV SCH ×2 (14:25→21:44)
[2017-02-02] MEDS ORDERED: VANCOMYCIN INJ 1,850 MG in SODIUM CHLORIDE 0.9% 500ML 500 ML IV SCH (14:30)
[2017-02-02 14:31] LABS: BASO % 0.8 %; BASO ABS # 0.05 K/uL (0-0.2); EOS % 1.9 %; HEMATOCRIT 35.8 % (42-52); IG% 0.3 %; LYMPH % 20.1 %; MEAN CELL VOLUME 94.7 fL (80-100); MEAN PLATELET VOLUME 9.2 fL (7.4-10.4); MONO % 13.9 %; PLATELET COUNT 349 K/uL (130-400); RED BLOOD COUNT 3.78 M/uL (4.7-6.1); WHITE BLOOD COUNT 6.46 K/uL (4.8-10.8)
[2017-02-02 14:42] LABS: COMPLETE YES; MEAN CORPUSCULAR HGB CONC 33.8 g/dl (32-36)
[2017-02-02 14:48] LABS: ALB/GLOB RATIO 0.9 (0.9-2); BUN/CREATININE RATIO 19.1 (10-20); CALCIUM 8.4 mg/dl (8.5-10.1); CREATININE 0.86 mg/dl (0.60-1.40); POTASSIUM 4.2 mmol/L (3.5-5.1)
[2017-02-02] MEDS: VESICARE~ORDER AWAITING ACTION SCH ×2 (15:45→21:44)
[2017-02-02 15:48] VITALS: BP 139/80; PULSE 99; TEMP 36.7; O2SAT 97
--- NOTE | 2017-02-02 16:02 | INFECT. DISEASE CONSULTATION ---
DATE OF CONSULTATION: 02/02/2017 DATE OF CONSULTATION: 02/02/2017. REASON FOR CONSULTATION: Right knee cellulitis. REQUESTING PHYSICIAN: Dr. Howell. HISTORY OF PRESENT ILLNESS: This is a 71-year-old gentleman who was admitted from the orthopedic office after he had continued erythema of his right knee. He did undergo a total right knee replacement on 01/13/2017. He states he had a prolonged surgery time but was discharged from the hospital in stable condition. Since his surgery he states he has been able to ambulate without difficulty. He denies any pain in the knee. He states the incision has healed completely. He denies any purulent drainage, weeping or bleeding at home. He did have significant swelling, but he feels this is improving. Since the time of his surgery he has had erythema of the knee. He was seen by his orthopedic physicians last week and placed on antibiotics for 7 days, which he just completed this morning. He and his are unable to tell me the name of this antibiotic. He does feel that the swelling did decrease while on antibiotics, but the erythema has persisted. He denies any fevers or chills at home. He states the knee is warm to touch, but it has been since the time of surgery. He followed with orthopedic surgery again today in the office and did not have significant improvement and the decision was made to admit the patient to the hospital for intravenous antibiotics. Knee aspirate was done on an outpatient basis and results of this are pending. He does admit to some pressure in the knee and states when fluid was removed, although it was a small amount, he did have improvement in the feeling of pressure. He states he is still able to ambulate without difficulty. His only complaint is of erythema of the knee which is unchanged. He was placed on vancomycin and appears to be tolerating this well. Blood work and blood cultures were obtained during my examination. He denies any chest pain, cough, shortness of breath, nausea, vomiting, diarrhea or abdominal pain. All remaining review of systems are reviewed and are negative. PAST MEDICAL HISTORY: Significant for hearing impairment and osteoarthritis. PAST SURGICAL HISTORY: Significant for hernia repair and a right total knee on January 13 of this year. FAMILY HISTORY: Noncontributory. ALLERGIES: He has no known drug allergies. SOCIAL HISTORY: Significant for occasional alcohol use. He denies any drug use or tobacco use. He is retired. CURRENT MEDICATIONS: Include lisinopril, multivitamins, Ecotrin, vancomycin and Roxicodone. PHYSICAL EXAMINATION: VITAL SIGNS: Temperature is 36.7, pulse 99, respiratory rate 16, blood pressure 149/74, oxygen saturation is 97% on room air. GENERAL: He is awake, alert and oriented x3. He is in no acute distress. HEAD, EYES, EARS, NOSE, AND THROAT: Mucous membranes are moist. Extraocular muscles are intact. HEART: Regular. LUNGS: Clear bilaterally. ABDOMEN: Soft, nontender, nondistended. EXTREMITIES: There is no lower extremity edema. Compression stockings are in place. Examination of the right knee reveals incision to be closed and well healed. There is no purulent drainage. There is no bleeding. The knee is warm and erythematous to touch; however, it is nontender. There is edema. An Carlos bandage is in place on the superior aspect of the knee. LABORATORY STUDIES: White blood cell count is pending as is chemistry panel. Blood cultures and wound culture are pending. There is no imaging to review from this admission. ASSESSMENT AND PLAN: Right knee infection. He will be continued empirically on vancomycin pending the results of blood and wound culture. We did discuss that his previous antibiotic administration up until admission today may impede bacterial growth and he could have a negative culture despite infection based on his previous antibiotics; however, we will await further culture data and make additional treatment plans.
--- NOTE | 2017-02-02 16:20 | Pharmacy Progress Note ---
Pharmacy Antibiotic Consult Date of Service: Feb 02, 2017. Pharmacy Dosing Scope Pharmacy is consulted to initiate vancomycin IV dosing therapy, order appropriate labs and adjust drug dose/frequency. Subjective The patient is a 71 year old male admitted on Feb 02, 2017 at 13:32 with cellulitis vs infected knee. S/P R total knee arthroplasty on January 13, 2017. Objective Height (Feet): 5 Height (Inches): 8.00 Weight (Kilograms): 75.000 Lab Results (24hrs): Test 02/02/17 14:08 White Blood Count 6.46 K/uL (4.8-10.8) Red Blood Count 3.78 M/uL (4.7-6.1) Hemoglobin 12.1 g/dL (14.0-18.0) Hematocrit 35.8 % (42-52) Mean Corpuscular Volume 94.7 fL (80-100) Mean Corpuscular Hemoglobin 32.0 pg (25-34) Mean Corpuscular Hemoglobin Concent 33.8 g/dl (32-36) Platelet Count 349 K/uL (130-400) Mean Platelet Volume 9.2 fL (7.4-10.4) Neutrophils (%) (Auto) 63.0 % Lymphocytes (%) (Auto) 20.1 % Monocytes (%) (Auto) 13.9 % Eosinophils (%) (Auto) 1.9 % Basophils (%) (Auto) 0.8 % Neutrophils # (Auto) 4.07 K/uL (1.4-6.5) Lymphocytes # (Auto) 1.30 K/uL (1.2-3.4) Monocytes # (Auto) 0.90 K/uL (0.11-0.59) Eosinophils # (Auto) 0.12 K/uL (0-0.5) Basophils # (Auto) 0.05 K/uL (0-0.2) RDW Standard Deviation 46.1 fL (36.4-46.3) RDW Coefficient of Variation 13.2 % (11.5-14.5) Immature Granulocyte % (Auto) 0.3 % Immature Granulocyte # (Auto) 0.02 K/uL (0.00-0.02) Sodium Level 139 mmol/L (136-145) Potassium Level 4.2 mmol/L (3.5-5.1) Chloride Level 104 mmol/L (98-107) Carbon Dioxide Level 28 mmol/L (21-32) Anion Gap 7.0 mmol/L (3-11) Blood Urea Nitrogen 16 mg/dl (7-18) Creatinine 0.86 mg/dl (0.60-1.40) Est Creatinine Clear Calc Drug Dose 75.1 ml/min Estimated GFR () 100.4 Estimated GFR (Non- 86.6 BUN/Creatinine Ratio 19.1 (10-20) Random Glucose 97 mg/dl (70-99) Calcium Level 8.4 mg/dl (8.5-10.1) Aspartate Amino Transf (AST/SGOT) 17 U/L (15-37) Alanine Aminotransferase (ALT/SGPT) 22 U/L (12-78) Alkaline Phosphatase 74 U/L (45-117) Total Protein 7.4 gm/dl (6.4-8.2) Albumin 3.5 gm/dl (3.4-5.0) Globulin 3.9 gm/dl (2.5-4.0) Albumin/Globulin Ratio 0.9 (0.9-2) Micro Results: 02/02 aspirate R knee pending 02/02 Blood x2 pending Recent Pertinent Medications Item Value Date Time Vancomycin HCl 537 ml @ 200 mls/hr 02/02/17 1430 1850 mg/Sodium TODAY@1430/IV 02/02/17 1437 Chloride Vancomycin HCl 272 ml @ 125 mls/hr 02/03/17 0200 1100 mg/Sodium Q12@0200,1400/IV Chloride Pt was on unknown po antibiotic prior to admission. Assessment & Plan Loading dose: vancomycin 1850 mg IV X 1 dose (~25 mg/kg), then: vancomycin 1100 mg IV every 12 hours. Goal peak level estimate: between 25-40 mcg/mL. Goal trough level estimate: between 15-20 mcg/mL. Trough has been ordered for: 02/04/17 before 0200 dose. Pharmacy will continue to follow and will adjust dose/frequency as necessary. Thank you
--- NOTE | 2017-02-02 17:27 | HISTORY & PHYSICAL EXAMINATION ---
DATE OF ADMISSION: 02/02/2017 SUBJECTIVE CHIEF COMPLAINT: Right knee swelling and redness. HISTORY OF PRESENT ILLNESS: The patient is a 71-year-old gentleman who came to the office today as a followup of the erythema of the right knee. He underwent a right TKA on 01/13/2017. At his 2 week postop, greg were removed. Incision was clean, dry and intact. There was redness around his incision. It was also warm to touch. He was placed on 7 days of Keflex and told to follow up in 1 week. Following up today he continued to have swelling and redness. He denied any fevers, chills, abdominal pain, nausea, vomiting, cough, congestion. PAST MEDICAL HISTORY: Significant for hearing impairment, osteoarthritis. PAST SURGICAL HISTORY: Hernia repair, right TKA on 01/13/2017. FAMILY HISTORY: Noncontributory. SOCIAL HISTORY: He uses alcohol occasionally. Denies smoking or tobacco use. He denies illegal drug use. He is currently retired. ALLERGIES: He has no known drug allergies. FAMILY HISTORY: Noncontributory. CURRENT MEDICATIONS: Include Lisinopril, multivitamins, vancomycin, Roxicodone. OBJECTIVE: GENERAL APPEARANCE: The patient is a 71-year-old male sitting in the exam room with no acute distress. He is well dressed, well nourished. He is awake, alert and oriented x3. VITAL SIGNS: Blood pressure was 149/74. HEENT: Normocephalic, atraumatic. Extraocular movements were intact. PERRLA. Mucosa was moist. No septal deviation. NECK: Supple with no lymphadenopathy, no JVD, no thyromegaly. HEART: Regular rate and rhythm with no murmurs. LUNGS: Clear to auscultation. No wheezes or rhonchi. ABDOMEN: Soft, nontender, nondistended. Normal bowel sounds, no hepatosplenomegaly. EXTREMITIES: Paying particular attention to the right lower extremity. There is redness surrounding the incision. There is warmth to touch. There is swelling and nontender. LABORATORY DATA: CMP and blood cultures are pending. Wound cultures are also pending. IMPRESSION: Status post right total knee arthroplasty with cellulitis. PLAN: The patient came in today to the office for followup after being on Keflex for 7 days for right knee swelling, redness and warmth. He states that the swelling has gone down; however, there is still redness and warmth on physical exam. Dr. Keita attempted to aspirate the knee for any possible infection from the superolateral aspect of the knee, 1 mL of bloody drainage was obtained and was sent for culture and sensitivity as well as white blood cell with differential. Given the fact that he has failed p.o. antibiotics we would like to admit him for IV antibiotic treatment for right knee TKA with cellulitis. Pharmacy will be consulted for vancomycin troughs, infectious disease will be consulted for antibiotic treatment. DANIEL
[2017-02-02] MEDS ORDERED: ACETAMINOPHEN 325 MG TAB ONE (18:44)
[2017-02-02] MEDS ORDERED: NURSING VERBAL MED ORDER ONE (18:45)
[2017-02-02] MEDS ORDERED: ACETAMINOPHEN 325 MG TAB PO PRN (19:30)
[2017-02-02] MEDS: ASPIRIN 81 MG ECTAB PO SCH (21:44)
[2017-02-02 22:55] VITALS: BP 133/66; PULSE 97; TEMP 36.7; O2SAT 97
[2017-02-03] MEDS: VANCOMYCIN INJ 1,100 MG in SODIUM CHLORIDE 0.9% 250ML 250 ML IV SCH ×2 (02:31→14:19)
[2017-02-03] MEDS: DEXTROSE 5% 1000ML 1,000 ML IV SCH ×3 (06:11→21:31)
[2017-02-03 06:56] VITALS: BP 134/74; PULSE 93; TEMP 36.4; O2SAT 93
--- NOTE | 2017-02-03 07:22 | Clinical Documentation Query ---
CLINICAL DOCUMENTATION QUERY 71-y/o male s/p right TKR on 01/13/17 with cellulitis to same knee. ID has been consulted and there assessment was right knee infection. In your clinical opinion is this patient being managed for: ( ) "Infection of right TKR" treated with ID consult and IV Vancomycin (A complication of care) ( ) "Right knee cellulitis unrelated to TKR." (NOT a complication of care) treated with same ( ) Other explanation of clinical findings (Please Explain) ( ) Unable to determine (Please Define) ( ) Need to Discuss ( ) Not Agree The medical record reflects the following clinical findings, treatment, and risk factors. Clinical Indicators: As above. H&P describes extremity as: "Incision was clean, dry and intact. There was redness around his incision. It was also warm to touch. He was placed on 7 days of Keflex and told to follow up in 1 week. Following up today he continued to have swelling and redness." Treatment: ID consult, IV Vancomycin, Risk Factors: Age, recent surgery to area, failed outpatient treated. Please clarify and document your clinical opinion in the progress notes and discharge summary. Terms such as "probable", "suspected", "likely", "questionable", "possible", or "still to be ruled out" are acceptable. IF IN AGREEMENT, YOU MUST DOCUMENT ABOVE DIAGNOSTIC STATEMENT IN DAILY PROGRESS NOTES AND DISCHARGE SUMMARY. This document is not part of the patient's record. Thank You, Min Pittman RN [phone]
--- NOTE | 2017-02-03 08:22 | Orthopedic Progress Note ---
Orthopedic Progress Note Date of Service Feb 03, 2017. Subjective Reports: feeling well, Denies: complaints, chest pain, SOB, nausea / vomiting, light headedness, calf pain Additional Notes: Patient states that he is feeling well. He notices a decrease in stiffness in his knee since starting the antibiotics. Objective calves soft nontender, incision C/D/I, A&O x3, toes mobile There is still erythema, warmth and edema around the incision site. The skin is less taunt today compared to yesterday in the office. Bandage from aspiration is still intact with no drainage. Date Time Temp Pulse Resp B/P (MAP) Pulse Ox O2 Delivery O2 Flow Rate FiO2 02/03/17 06:56 36.4 93 16 134/74 (94) 93 Room Air 02/02/17 22:55 36.7 97 16 133/66 (88) 97 Room Air 02/02/17 20:20 Room Air 02/02/17 16:00 Room Air 02/02/17 15:48 36.7 99 16 139/80 (99) 97 Room Air 02/02/17 13:50 36.7 99 16 149/74 Room Air 97 Laboratory Results 24 Hours: Test 02/02/17 14:08 White Blood Count 6.46 K/uL Red Blood Count 3.78 M/uL Hemoglobin 12.1 g/dL Hematocrit 35.8 % Mean Corpuscular Volume 94.7 fL Mean Corpuscular Hemoglobin 32.0 pg Mean Corpuscular Hemoglobin Concent 33.8 g/dl Platelet Count 349 K/uL Mean Platelet Volume 9.2 fL Neutrophils (%) (Auto) 63.0 % Lymphocytes (%) (Auto) 20.1 % Monocytes (%) (Auto) 13.9 % Eosinophils (%) (Auto) 1.9 % Basophils (%) (Auto) 0.8 % Neutrophils # (Auto) 4.07 K/uL Lymphocytes # (Auto) 1.30 K/uL Monocytes # (Auto) 0.90 K/uL Eosinophils # (Auto) 0.12 K/uL Basophils # (Auto) 0.05 K/uL Assessment & Plan Assessment: 3 weeks S/P right TKA with cellulitis Plan: Patient will continue IV antibiotics as per ID Blood cultures are still pending Discharge uncertain at this time Inhouse Planning Pain Management: PO Tylenol, Oxy IR DVT Prophylaxis: TEDs, SCDs, ASA Discharge Planning Discharge Planning: uncertain
[2017-02-03] MEDS: MULTIVITAMIN TAB PO SCH (08:35)
[2017-02-03] MEDS: VESICARE~ORDER AWAITING ACTION SCH (08:35)
[2017-02-03 08:38] VITALS: BP 139/79; PULSE 91
[2017-02-03] MEDS: LISINOPRIL 10 MG TAB PO SCH (08:39)
[2017-02-03] MEDS: ASPIRIN 81 MG ECTAB PO SCH ×2 (09:16→21:30)
--- NOTE | 2017-02-03 10:48 | Progress Note ---
Subjective Date of Service: Feb 03, 2017. Subjective Pt evaluation today including: conversation w/ patient, physical exam, chart review, lab review pt oob to chair, doing well. continues to deny pain. no f/c overnight. tolerating vanco. knee less swollen today, less red. blood cultures pending, office aspirate cultuer with few polys and no organisms but was on abx 7 days at home prior. no drainage or bleeding from knee. all remaining ros reviewed and are negative. asking to go home soon. Problem List Medical Problems: (1) Knee pain Status: Acute Objective Vital Signs Date Time Temp Pulse Resp B/P (MAP) Pulse Ox O2 Delivery O2 Flow Rate FiO2 02/03/17 08:38 91 139/79 (99) 02/03/17 07:40 Room Air 02/03/17 06:56 36.4 93 16 134/74 (94) 93 Room Air 02/02/17 22:55 36.7 97 16 133/66 (88) 97 Room Air 02/02/17 20:20 Room Air 02/02/17 16:00 Room Air 02/02/17 15:48 36.7 99 16 139/80 (99) 97 Room Air 02/02/17 13:50 36.7 99 16 149/74 Room Air 97 Physical Exam General Appearance: WD/WN, no apparent distress Eyes: normal inspection, EOMI Neck: supple Respiratory/Chest: lungs clear, normal breath sounds, no respiratory distress Cardiovascular: regular rate, rhythm, no edema Abdomen: non tender, soft Extremities: non-tender, no pedal edema Neurologic/Psychiatric: alert, oriented x 3 Comments: right knee less erythema and edema today. incision closed, no drainage. still with warmth, non tender. better today Laboratory Results Last 24 Hours Test 02/02/17 14:08 White Blood Count 6.46 K/uL Red Blood Count 3.78 M/uL Hemoglobin 12.1 g/dL Hematocrit 35.8 % Mean Corpuscular Volume 94.7 fL Mean Corpuscular Hemoglobin 32.0 pg Mean Corpuscular Hemoglobin Concent 33.8 g/dl Platelet Count 349 K/uL Mean Platelet Volume 9.2 fL Neutrophils (%) (Auto) 63.0 % Lymphocytes (%) (Auto) 20.1 % Monocytes (%) (Auto) 13.9 % Eosinophils (%) (Auto) 1.9 % Basophils (%) (Auto) 0.8 % Neutrophils # (Auto) 4.07 K/uL Lymphocytes # (Auto) 1.30 K/uL Monocytes # (Auto) 0.90 K/uL Eosinophils # (Auto) 0.12 K/uL Basophils # (Auto) 0.05 K/uL RDW Standard Deviation 46.1 fL RDW Coefficient of Variation 13.2 % Immature Granulocyte % (Auto) 0.3 % Immature Granulocyte # (Auto) 0.02 K/uL Sodium Level 139 mmol/L Potassium Level 4.2 mmol/L Chloride Level 104 mmol/L Carbon Dioxide Level 28 mmol/L Anion Gap 7.0 mmol/L Blood Urea Nitrogen 16 mg/dl Creatinine 0.86 mg/dl Est Creatinine Clear Calc Drug Dose 75.1 ml/min Estimated GFR () 100.4 Estimated GFR (Non- 86.6 BUN/Creatinine Ratio 19.1 Random Glucose 97 mg/dl Calcium Level 8.4 mg/dl Total Bilirubin 0.5 mg/dl Aspartate Amino Transf (AST/SGOT) 17 U/L Alanine Aminotransferase (ALT/SGPT) 22 U/L Alkaline Phosphatase 74 U/L Total Protein 7.4 gm/dl Albumin 3.5 gm/dl Globulin 3.9 gm/dl Albumin/Globulin Ratio 0.9 Assessment and Plan (1) Cellulitis Assessment & Plan: will continue IV vanco for now, has had good response to this so far. culture negative but may remain negative due to previous abx. suspect he will benefit from course of IV abx even if culture negative. spoke with case management, will check benefit coverage for home IV. continue vanco for now. blood cultures pending. follow cultures. would give min 4 weeks IV abx.
[2017-02-03 15:22] VITALS: BP 146/76; PULSE 95; TEMP 36.7; O2SAT 97
[2017-02-03] MEDS: CeleBREX 100 MG CAP PO SCH (21:30)
[2017-02-03 22:50] VITALS: BP 134/70; PULSE 89; TEMP 36.7; O2SAT 96
[2017-02-04] MEDS ORDERED: VANCOMYCIN TROUGH SCH (01:30)
[2017-02-04] MEDS: VANCOMYCIN INJ 1,100 MG in SODIUM CHLORIDE 0.9% 250ML 250 ML IV SCH (01:33)
[2017-02-04] MEDS: DEXTROSE 5% 1000ML 1,000 ML IV SCH (05:11)
[2017-02-04 06:45] LABS: CREATININE 0.72 mg/dl (0.60-1.40)
[2017-02-04 07:20] VITALS: BP 132/78; PULSE 80; TEMP 36.5; O2SAT 97
[2017-02-04 08:26] VITALS: BP 136/78; PULSE 93
[2017-02-04] MEDS: CeleBREX 100 MG CAP PO SCH (08:28)
[2017-02-04] MEDS: MULTIVITAMIN TAB PO SCH (08:28)
[2017-02-04] MEDS: ASPIRIN 81 MG ECTAB PO SCH (08:28)
[2017-02-04] MEDS: LISINOPRIL 10 MG TAB PO SCH (08:28)
[2017-02-04 08:30] VITALS: O2SAT 97
[2017-02-04] MEDS ORDERED: VESICARE 5MG TABLET PO SCH (09:00)
--- NOTE | 2017-02-04 09:09 | Orthopedic Progress Note ---
Orthopedic Progress Note Date of Service Feb 04, 2017. Subjective Reports: feeling well, pain controlled w PO medications, Denies: complaints, chest pain, SOB, nausea / vomiting, light headedness, calf pain Objective calves soft nontender, incision C/D/I Erythema is less than yesterday. Still some warmth and edema. Incision is C/D/I. Date Time Temp Pulse Resp B/P (MAP) Pulse Ox O2 Delivery O2 Flow Rate FiO2 02/04/17 08:30 97 Room Air 02/04/17 08:26 93 136/78 (97) 02/04/17 07:20 36.5 80 18 132/78 (96) 97 Room Air 02/03/17 23:35 Room Air 02/03/17 22:50 36.7 89 15 134/70 (91) 96 Room Air 02/03/17 15:22 36.7 95 18 146/76 (99) 97 Room Air 02/03/17 15:00 Room Air Assessment & Plan Assessment: 3 weeks S/P right TKA with cellulitis Plan: Patient will continue IV antibiotics as per ID Blood cultures are still pending Discharge uncertain at this time Inhouse Planning Pain Management: PO Tylenol, Oxy IR DVT Prophylaxis: TEDs, SCDs, ASA Discharge Planning Discharge Planning: home with home health
--- NOTE | 2017-02-04 09:20 | Progress Note ---
Subjective Date of Service: Feb 04, 2017. Subjective pt for d/c today, on vanco, tolerating well. dapto copay expensive. afebrile. blood and wound cultures negative. Problem List Medical Problems: (1) Knee pain Status: Acute Objective Vital Signs Date Time Temp Pulse Resp B/P (MAP) Pulse Ox O2 Delivery O2 Flow Rate FiO2 02/04/17 08:30 97 Room Air 02/04/17 08:26 93 136/78 (97) 02/04/17 07:20 36.5 80 18 132/78 (96) 97 Room Air 02/03/17 23:35 Room Air 02/03/17 22:50 36.7 89 15 134/70 (91) 96 Room Air 02/03/17 15:22 36.7 95 18 146/76 (99) 97 Room Air 02/03/17 15:00 Room Air Laboratory Results Item Value Date Time Blood Culture - Preliminary Resulted 02/02/17 1415 Blood NO GROWTH TO DATE. Blood Culture - Preliminary Resulted 02/02/17 1408 Blood NO GROWTH TO DATE. Gram Stain - Final Resulted 02/02/17 1245 Aspirate - Other Knee Right Last 24 Hours Test 02/04/17 01:35 02/04/17 05:25 Vancomycin Level Trough 13.1 mcg/ml Creatinine 0.72 mg/dl Est Creatinine Clear Calc Drug Dose 89.7 ml/min Estimated GFR () 108.0 Estimated GFR (Non- 93.2 Assessment and Plan (1) Cellulitis Assessment & Plan: will continue IV vanco for now, has had good response to this so far. culture negative but may remain negative due to previous abx. suspect he will benefit from course of IV abx even if culture negative. continue vanco for now. blood cultures pending. follow cultures. would give min 4 weeks IV abx. stop 03/01, weekly labs, vanco trough, rx given
--- NOTE | 2017-02-04 10:04 | Pharmacy Progress Note ---
Pharmacy Antibiotic Prog Note Date of Service Feb 04, 2017. Subjective The patient is currently receiving VANCOMYCIN 1100mg IV every 12 hours. The patient is currently on day # 3 of VANCOMYCIN IV therapy. Objective Height (Feet): 5 Height (Inches): 8.00 Weight (Kilograms): 75.000 Levels: Item Value Date Time Vancomycin Level Trough 13.1 mcg/ml 02/04/17 0135 Lab Results (24hrs): Test 02/04/17 01:35 02/04/17 05:25 Vancomycin Level Trough 13.1 mcg/ml (SEE COMMENT) Creatinine 0.72 mg/dl (0.60-1.40) Est Creatinine Clear Calc Drug Dose 89.7 ml/min Estimated GFR () 108.0 Estimated GFR (Non- 93.2 Assessment & Plan 71yo male receiving VANCOMYCIN for cellulitis s/p R TKA 3 weeks ago. Renal function is stable. VANCOMYCIN: * Patient has been receiving VANCOMYCIN 1100mg IV q12h. * Trough level drawn prior to 0200 dose today = 13.1 mcg/mL. * This drug level is slightly Subtherapeutic. * Spoke with Dr Hassan today. Patient will be discharged on outpatient VANCOMYCIN either today or tomorrow. She would prefer to keep VANCOMYCIN at the current dose, as a trough level above 10mcg/mL is adequate. * Will continue with current dose and recheck a trough in a few days if patient is not discharged. Pharmacy will continue to follow and will adjust dose/frequency as necessary. Thank you
--- NOTE | 2017-02-04 10:56 | Discharge Instructions ---
Discharge Instructions Date of Service Feb 04, 2017. Admission Reason for Admission: Right Knee Pain Discharge Discharge Diagnosis / Problem: S/P 3 weeks Right TKA with cellulitis Discharge Goals Goal(s): Decrease discomfort, Improve function Activity Recommendations Activity Limitations: per Instructions/Follow-up section . Instructions / Follow-Up Instructions / Follow-Up A. Patient is to take IV antibiotics as directed. Will follow up with ID. B. Follow up with Dr. Keita 3 weeks for your 6 week follow up appoint. - If you do not have an appointment please call [phone] C. Continue Physical therapy as before admission. D. Continue pain medications as needed. E. If any increased redness, swelling, or warmth call [facility] . Current Hospital Diet Patient's current hospital diet: Regular Diet Discharge Diet Recommended Diet: Regular Diet Pending Studies Studies pending at discharge: no Laboratory Results Hemoglobin A1c Test 12/22/16 14:35 Range/Units Estimated Average Glucose 105 mg/dl Hemoglobin A1c 5.3 4.5-5.6 % Lipid Panel Test 12/29/16 11:03 Range/Units Triglycerides Level 78 0-150 mg/dl Cholesterol Level 238 H 0-200 mg/dl HDL Cholesterol 54 mg/dl Cholesterol/HDL Ratio 4.4 LDL Cholesterol, Calculated 168 mg/dl Medical Emergencies . Who to Call and When: Medical Emergencies: If at any time you feel your situation is an emergency, please call 911 immediately. . Non-Emergent Contact Non-Emergency issues call your: Surgeon Call Non-Emergent contact if: temperature is above 101.5, your pain is worsening, wound has increased redness . "Provider Documentation" section prepared by Haroldo Howell. . VTE Core Measure Inpt VTE Proph given/why not?: Other Anticoagulation (ASA) [place] Drug Monitoring Program Search Results: patient reviewed within database, no issues identified
[2017-02-04 11:04] VITALS: BP 136/78; PULSE 93; TEMP 36.5; O2SAT 97
--- NOTE | 2017-02-08 10:04 | DISCHARGE SUMMARY ---
ADMISSION DIAGNOSIS: Status post 3 weeks right TKA with cellulitis. DISCHARGE DIAGNOSIS: Same. CONSULTS: Infectious disease, Dr. Hassan, and pharmacy. PROCEDURE: None. HISTORY OF PRESENT ILLNESS: The patient is a 71-year-old gentleman, who came in to the office today as a followup for erythema of his right knee. He underwent a right TKA on 01/13/2017. At his 2-week postop greg were removed. The incision was clean, dry and intact. There was redness and warmth around the incision site. He was placed on 7 days of Keflex and told follow up in 1 week. Following up in the office, he had continued redness and swelling as well warm to touch. He denied any fevers, chills, abdominal pain, nausea, vomiting, diarrhea, cough or congestion. The patient was directly admitted for cellulitis of the operative knee after a right TKA. HOSPITAL COURSE: Day #1, the patient was feeling well. He denied any chest pain, shortness of breath, nausea, vomiting, lightheadedness or calf pain. The patient states that he noticed a decrease in the stiffness since starting the IV antibiotics. There was still some erythema and warmth around the incision site. The skin was less taut as compared to the office. The patient would continue IV antibiotics, as per infectious disease. Blood cultures were pending at this time and discharge was uncertain. Day #2, the patient was feeling well. Pain was controlled with p.o. medications. He denied chest pain, shortness of breath, nausea, vomiting, lightheadedness or calf pain. Erythema was less on day 2. There was still some warmth and swelling, but the incision was clean, dry and intact. Blood cultures were still pending at this time and likely, will come negative because of previous antibiotic treatment. It was discussed with infectious disease that he would be placed on IV antibiotics and he would be sent home with home health. DISCHARGE CONDITION: Stable. DISPOSITION: Home with health services. MEDICATIONS: Vancomycin 1100 mg IV once daily, Tylenol 1000 mg by mouth every 8 hours, aspirin 81 mg by mouth twice daily for 30 days and continue normal Regimen, Celebrex 200 mg by mouth twice daily, lisinopril 10 mg by mouth daily, multivitamin 1 tablet by mouth daily, Zofran 1 tablet by mouth every 6 hours as needed for nausea, OxyContin 10 mg by mouth every 12 hours, oxycodone 5-10 mg by mouth every 4 hours as needed for pain, VESIcare 5 mg by mouth daily in the morning. INSTRUCTIONS: Regular diet. The patient is to take IV antibiotics as directed and will follow up as an outpatient with infectious disease. He is to follow up with Dr. Keita or his PA in 1-2 weeks and call for an appointment. He is to continue physical therapy as before his admission, continue his pain medications as needed. If he notices any redness, swelling or increase in warmth, he is to call the [facility]. Follow up with Dr. Keita or his PA in 1-2 weeks. DANIEL
== END 2017-02-04 12:42 | disposition home health service (06) | DRG 603 ==
LOC: C.MSN 13:32
PROVIDERS: ADMIT Orthopaedic Surgery; ATTEND Orthopaedic Surgery
DX: L03.115 Cellulitis of right lower limb (principal); H91.90 Unspecified hearing loss, unspecified ear; Z79.899 Other long term (current) drug therapy; Z96.651 Presence of right artificial knee joint; M19.90 Unspecified osteoarthritis, unspecified site

== ENCOUNTER → 2017-02-02 | Outpatient (CLI) | payer OTHER, BC ==
[~2017-02-02] MED LIST changes: +ACET-1138 PO; +ASPEC81 PO; -AcetaZOLAMIDE 250 MG TAB PO SCH; -BETAXOLOL HCL 0.25% OP SUSP PER DROP CHARGE OPR SCH; -CYCLOPENTOLATE HCL 1% OP SOLN PER DROP CHARGE OPR SCH; -LACTATED RINGER'S 1000ML 500 ML IV SCH; -LIDOCAINE 4% OP SOLN DROP CHARGE OPR SCH; +LISI-461 PO; -MOXIFLOXACIN OPH SOLN PER DROP CHARGE OPR SCH; +OXYSR10 PO; -PHENYLEPHRINE HCL 2.5% OP SOLN PER DROP CHARGE OPR SCH; -PROPARACAINE 0.5% OP SOLN PER DROP CHARGE OPR SCH; +RXC5 PO; -TROPICAMIDE 1% OP SOLN PER DROP CHARGE OPR SCH
--- NOTE | 2017-02-02 14:31 | Consultant Recommendations ---
Lead Systems Engineer Recommendations Date of Service Feb 02, 2017. Lead Systems Engineer Recommendations ID Consult Dictated #[id number] A/P: 1. right knee infection -Continue vanco -Await blood and wound culture results, aspirate culture may be negative as pt has been on abx for last 7 days -Will follow, thank you
== END | disposition home or self-care (01) ==
LOC: C.LABSPEC 14:09
PROVIDERS: ATTEND Orthopaedic Surgery
DX: Z96.651 Presence of right artificial knee joint (principal)

== ENCOUNTER → 2017-02-21 | Outpatient (CLI) | payer OTHER, BC ==
[2017-02-21 08:15] LABS: BASO % 1.1 %; BASO ABS # 0.05 K/uL (0-0.2); EOS % 6.1 %; HEMATOCRIT 38.1 % (42-52); IG% 0.4 %; LYMPH % 27.1 %; LYMPH ABS # 1.25 K/uL (1.2-3.4); MEAN CELL VOLUME 92.7 fL (80-100); MEAN CORPUSCULAR HEMOGLOBIN 30.2 pg (25-34); MONO % 22.6 %; NEUT % 42.7 %; PLATELET COUNT 223 K/uL (130-400); RED BLOOD COUNT 4.11 M/uL (4.7-6.1); WHITE BLOOD COUNT 4.61 K/uL (4.8-10.8)
[2017-02-21 08:21] LABS: COMPLETE YES; MEAN CORPUSCULAR HGB CONC 32.5 g/dl (32-36)
[2017-02-21 08:23] LABS: ALT/SGPT 43 U/L (12-78); BLOOD UREA NITROGEN 15 mg/dl (7-18); BUN/CREATININE RATIO 18.7 (10-20); C-REACTIVE PROTEIN 2.59 mg/dl (0-0.29); CALCIUM 8.7 mg/dl (8.5-10.1); CARBON DIOXIDE 24 mmol/L (21-32); CHLORIDE 105 mmol/L (98-107); CREATININE 0.82 mg/dl (0.60-1.40); GLUCOSE 78 mg/dl (70-99); POTASSIUM 3.9 mmol/L (3.5-5.1); SODIUM 138 mmol/L (136-145)
[2017-02-21 08:25] LABS: ALB/GLOB RATIO 0.9 (0.9-2); ALKALINE PHOSPHATASE 70 U/L (45-117); AST/SGOT 35 U/L (15-37)
== END | disposition home or self-care (01) ==
LOC: C.LABSPEC 06:45
PROVIDERS: ATTEND Internal Medicine Infectious Disease
DX: T84.53XA Infection and inflammatory reaction due to internal right knee prosthesis, initial encounter (principal); Z45.2 Encounter for adjustment and management of vascular access device; L03.115 Cellulitis of right lower limb; Y83.1 Surgical operation with implant of artificial internal device as the cause of abnormal reaction of the patient, or of later complication, without mention of misadventure at the time of the procedure

== ENCOUNTER → 2017-05-29 | Outpatient (CLI) | payer OTHER, BC ==
[2017-05-29 11:57] LABS: ALT/SGPT 24 U/L (12-78); BLOOD UREA NITROGEN 17 mg/dl (7-18); BUN/CREATININE RATIO 17.8 (10-20); CALCIUM 8.9 mg/dl (8.5-10.1); CARBON DIOXIDE 27 mmol/L (21-32); CHLORIDE 106 mmol/L (98-107); CHOLESTEROL 225 mg/dl (0-200); CREATININE 0.96 mg/dl (0.60-1.40); GLUCOSE 104 mg/dl (70-99); POTASSIUM 3.8 mmol/L (3.5-5.1); SODIUM 139 mmol/L (136-145); TRIGLYCERIDES 117 mg/dl (0-150); VERY LOW DENSITY LIPOPROT CALC 23 mg/dl
[2017-05-29 12:00] LABS: ALKALINE PHOSPHATASE 81 U/L (45-117); AST/SGOT 26 U/L (15-37); HDL CHOLESTEROL 45 mg/dl; LDL CHOLESTEROL CALCULATED 157 mg/dl
== END | disposition home or self-care (01) ==
LOC: C.LABPBG 07:46
PROVIDERS: ATTEND Family Medicine
DX: E78.5 Hyperlipidemia, unspecified (principal)

== ENCOUNTER → 2017-12-15 | Outpatient (CLI) | payer OTHER, BC ==
[~2017-12-15] MED LIST changes: -ASPEC81 PO; +ASPI-320 PO
[2017-12-15 13:44] LABS: BASO % 0.4 %; BASO ABS # 0.02 K/uL (0-0.2); EOS % 4.9 %; EOS ABS # 0.25 K/uL (0-0.5); HEMATOCRIT 44.3 % (42-52); HEMOGLOBIN 15.7 g/dL (14.0-18.0); IG# 0.01 K/uL (0.00-0.02); LYMPH % 26.6 %; LYMPH ABS # 1.35 K/uL (1.2-3.4); MEAN CELL VOLUME 92.7 fL (80-100); MEAN CORPUSCULAR HEMOGLOBIN 32.8 pg (25-34); MEAN CORPUSCULAR HGB CONC 35.4 g/dl (32-36); MEAN PLATELET VOLUME 10.5 fL (7.4-10.4); MONO % 11.4 %; MONO ABS # 0.58 K/uL (0.11-0.59); NEUT % 56.5 %; NEUT ABS # 2.87 K/uL (1.4-6.5); PLATELET COUNT 188 K/uL (130-400); WHITE BLOOD COUNT 5.08 K/uL (4.8-10.8)
[2017-12-15 14:50] LABS: BLOOD UREA NITROGEN 20 mg/dl (7-18); CALCIUM 8.7 mg/dl (8.5-10.1); CARBON DIOXIDE 30 mmol/L (21-32); CHOLESTEROL 215 mg/dl (0-200); CREATININE 0.94 mg/dl (0.60-1.40); GLUCOSE 96 mg/dl (70-99); SODIUM 139 mmol/L (136-145)
[2017-12-15 14:56] LABS: LDL CHOLESTEROL CALCULATED 152 mg/dl
== END | disposition home or self-care (01) ==
LOC: C.LABPBG 09:30
PROVIDERS: ATTEND Family Medicine
DX: N40.2 Nodular prostate without lower urinary tract symptoms (principal); I10 Essential (primary) hypertension; E78.5 Hyperlipidemia, unspecified